=== PATIENT | male | born 1955 | race Caucasian/White ===

== ENCOUNTER 2018-12-25 11:38 | Inpatient (IN) | payer MEDICARE ==
[2018-12-25] VITALS (10 sets, daily range): BP systolic 104–144; BP diastolic 55–71
[~2018-12-25] VITALS: Ht 180.3 cm; Wt 131.3 kg
[~2018-12-25 11:38] MED LIST: COUMADIN5 MG PO; GLUCOTROL XL10 MG PO; LASIX 20 MG20 MG/TAB PO; PERCOCET 10/31 COMBO PO
--- NOTE | 2018-12-25 11:50 | NUR ---
PT BROUGHT DIRECTLY BACK PER W/C
--- NOTE | 2018-12-25 12:03 | NUR ---
PT STATES HE IS [facility] AND [facility] GOES TO [facility] BUT JUST DIDNT FEEL LIKE DRIVING. SATS 92%, RESP 20
[2018-12-25 12:32] LABS: HEMATOCRIT 40.6 % (39.0-50.0); HEMOGLOBIN 13.7 g/dl (14.0-18.0); IMMATURE GRANULOCYTES 0.6 % (0.0-5.0); MEAN CELL VOLUME 100.7 fL CALC (80.0-100.0); MEAN CORPUSCULAR HGB CONC 33.7 g/L CALC (32.0-36.0); NEUT# 7.55 thou/uL (1.82-7.42); RED BLOOD COUNT 4.03 mill/uL (4.70-6.10); RED CELL DISTRI WIDTH 14.3 % (11.5-15.5)
[2018-12-25 12:44] LABS: ANION GAP 20 (6-22 (CALC)); BUN 17 mg/dL (8-23); BUN/CREATININE RATIO 16 (12-20 (CALC)); CARBON DIOXIDE 27 mmol/l (22-30); CHLORIDE 95 mmol/l (95-108); CREATININE 1.1 mg/dL (0.7-1.3); GFR > 60 ML/MIN (>=60 (CALC)); GFR FOR AFR.AMER. > 60 ML/MIN (>=60 (CALC)); POTASSIUM 3.7 mmol/l (3.5-5.1); SODIUM 139 mmol/l (137-146)
--- NOTE | 2018-12-25 13:05 | NUR ---
PT REMAINS ALERT/ORIENTED X3, STILL DENIES CHEST PAIN, STATES HAS SOME PAIN TO RIGHT LOWER LEG BEHIND KNEE, DR. MORALEZ INFORMED, NO NEW ORDERS.
--- NOTE | 2018-12-25 13:38 | NUR ---
2ND EKG OBTAINED PER DR. PHELPS
[2018-12-25] MEDS ORDERED: TOPROL XL PO (13:53)
[2018-12-25] MEDS ORDERED: DIGOXIN0.125 MG PO (13:54)
[2018-12-25] MEDS ORDERED: LISINOPRIL5 MG PO (13:55)
[2018-12-25] MEDS ORDERED: POTASSIUM CHLO10 MEQ PO (13:55)
[2018-12-25] MEDS ORDERED: LIPITOR40 M1 PO (13:56)
[2018-12-25] MEDS ORDERED: XARELTO10 MG PO (13:56)
[2018-12-25] MEDS ORDERED: TIKOSYN500 MCG PO (13:58)
--- NOTE | 2018-12-25 14:03 | NUR ---
PT RESTING QUIETLY ON STRETCHER, CALL LIGHT WITHIN REACH, PT WATCHING TV. STATES NO CHEST PAIN BUT REMAINS HAVING OFF AND ON AGAIN SOB.
--- NOTE | 2018-12-25 14:13 | NUR ---
PT HAVING RUNS OF [facility], NOTIFIED, AND WILL SPEAK TO PT ABOUT POSSIBLE TRANSFER
--- NOTE | 2018-12-25 14:44 | NUR ---
PT HAD ANOTHER RUN OF VTACH, HEART RATE THEN DROPPED INTO THE 40'S. DR. AGUIRRE CALLED, PT WILL BE PLACED IN ICU INSTEAD OF MED SURG
--- NOTE | 2018-12-25 15:02 | NUR ---
UNABLE TO CALL REPORT AT THIS TIME, ICU WILL RETURN MY CALL SOON THEY ARE ABLE
--- NOTE | 2018-12-25 15:24 | NUR ---
PT ADMITTED TO ICU BED 3 FROM ER VIA STRETCHER, PT MARILUZSNFERS SELF TO BED WITH STEADY GAIT, NO SOB OR COMPLAINTS DURING TRANSFER, PT STATES HE FELT MIDLY SOB THIS AM AT HOME, HIS HEART BEAT JUST DIDN'T FEEL RIGHT, HE FELT CLOUDY IN HIS HEAD AND SOME "ALMOST DIZZY", PT ALERT AND ORIENTED, KNOWS MEDICATIONS WELL, NORMALLY A [facility], STATES ALSO PER HIS HOME SCALE THAT IS LINKED TO [facility] HE HAS GAINED 15 LBS IN LAST FEW DAYS, ADMISSION ASSESSMENT COMPLETED SEE INTERVENTIONS, SKIN WARM AND DRY WITH SMALL RED FLAT AREAS NOTED TO WAIST LINE, PT STATES THEY ARE OLD AND HE HAS HAD THEM FOREVER AND NO SYMPTOMS, NO ITCHING OR ANY COMPLAINTS, LUNGS ARE CLEAR DIMINSHED IN BASES PT ADMITTED SMOKER STATES MAY 1-3 CIGERETTES PER DAY, DENIES HOME O2 USAGE, SAT ON ROOM AIR 93-96% WITH NO SOB OR DISTRESS NOTED ABD OARGE AND SOFT LAST BM TODAY PER PT, 2+ EDEMA NOTED TO BILAT ANKLES PT STATES NOT NEW AND SOMETIMES IT IS WORSE THAN CURRENTLY, SAFETY MEASURES INTRODUCED, ORIENTED TO ROOM AND UNIT, ALL MONITORING EQUIPMENT EXPLAINED PRIOR TO APPLICATION, COMFORT MEASURES PROVIDED, TELE READING SB/SR WITH PVCS RATE 50-60'S, BP STABLE, CALL TRUONG WITHIN REACH, URINAL PROVIDED EDUCATED REGARDING NEED FOR ACCURATE I&O'S VERBALIZES UNDERSTANDING, 20G IV ACCESS IN LEFT AC WITH GOOD ASPIRATE SALINE LOCKED AT THIS TIME, WILL CONTINUE TO MONITOR.
--- NOTE | 2018-12-25 15:38 | NUR ---
PT TAKEN TO FLOOR PER STRETCHER AND MONITER.
--- NOTE | 2018-12-25 16:00 | NUR ---
APPROVAL FOR HOME MED USE FILLED OUT FOR HOSPITAL USE. LABEL ON BOTTLE WORN OFF BUT PT POSITIVELY IDENTIFIED MEDICATION.
--- NOTE | 2018-12-25 16:10 | NUR ---
DR AGUIRRE REQUEST US TO ASK CASE MANAGEMENT TO TRANSFER PT TO [facility] FOR CONTINUITY OF CARE.
--- NOTE | 2018-12-25 16:19 | NUR ---
PER CASE MANAGEMENT, [facility] HAS NO TELE BEDS. WE CAN TRY TRANSFER AGAIN TOMORROW.
--- NOTE | 2018-12-25 16:43 | NUR ---
PT UPDATED ON POSSIBLE TRANSFER TO [facility]. GIVEN URINALS. REVIEWED WHEN TO CALL NURSES AGAIN.
--- NOTE | 2018-12-25 17:44 | NUR ---
PT SITTING UP IN BED, EATING DINNER. PLACED ON 2L NC D/T O2 STATES DROPPING TO 88-90 WHILE AT REST. PT ABLE TO TALK & MOVE W/OUT SOB. PT COOPERATIVE WITH STAFF.
--- NOTE | 2018-12-25 18:12 | NUR ---
WAITING FOR CARDINAL TO VERIFY PAIN MED. PER DR AGUIRRE, HE ALREADY PLACED ORDER
--- NOTE | 2018-12-25 19:30 | NUR ---
BEDSIDE REPORT RECEIVED FROM ANTOINE STEINBERG. PT RESTING IN BED SEMI FOWLERS; ALERT AND ORIENTED. DENIES CHEST PAIN. C/O MILD HEADAHCE AND MILD LOWER BACK PAIN; STATES THAT LORTAB WAS EFFECTIVE AND REQUESTS ANOTHER AT HS. PLAN OF CARE REVIEWED. PT ENCOURAGED TO VERBALIZE CONCERNS. STATES UNDERSTANDING. SAFETY MEASURES IN PLACE. CALL LIGHT WITHIN REACH.
--- NOTE | 2018-12-25 20:00 | NUR ---
ASSESSMENT COMPLETE. PT IS SINUS RHYTHM ON HOME VISITS NURSE. LUNGS CLEAR. TRACE EDEMA TO RLE AND 1+ EDEMA TO LLE.
--- NOTE | 2018-12-25 21:30 | NUR ---
HS MEDIACTIONS ADMINISTERED. PT HAS NO REQUESTS OR CONCERNS AT THIS TIME. SITTING UP IN BED WATCHING TV.
--- NOTE | 2018-12-25 23:52 | NUR ---
LORTAB GIVEN WITH GOOD EFFECT FOR BACK PAIN. VOIDING BALBIR CLEAR URINE IN BEDSIDE URINAL. IV SITE APPEARS HEALTHY AND FLUSHES. SAFETY MEASURES IN PLACE. CALL LIGHT WITHIN REACH.
[2018-12-26] VITALS (29 sets, daily range): BP systolic 86–146; BP diastolic 43–76
--- NOTE | 2018-12-26 01:52 | NUR ---
PT ASLEEP WITH NO SIGNS OF DISTRESS; RESPIRATIONS EVEN AND UNLABORED ON OXYGEN. SINUS JUDITH DOWN TO 48 ON TELEMETRY; ASYMPTOMATIC. REPOSITIONING SELF IN BED. ONE PERSON ASSIST TO BSC.
--- NOTE | 2018-12-26 03:28 | NUR ---
PT HAVING FREQUENT PVC'S AND BIGEMINY. ASLEEP AND ASYMPTOMATIC. TELE RHYTHMS PRINTED AND PLACED IN CHART.
[2018-12-26 05:23] LABS: HEMATOCRIT 37.1 % (39.0-50.0); HEMOGLOBIN 12.6 g/dl (14.0-18.0); IMMATURE GRANULOCYTES 0.3 % (0.0-5.0); MEAN CELL VOLUME 100.8 fL CALC (80.0-100.0); MEAN CORPUSCULAR HGB 34.2 pG CALC (26.0-32.0); NEUT# 4.24 thou/uL (1.82-7.42); RED BLOOD COUNT 3.68 mill/uL (4.70-6.10); RED CELL DISTRI WIDTH 14.6 % (11.5-15.5)
--- NOTE | 2018-12-26 05:30 | NUR ---
PT SITTING UP BED; ALERT AND ORIENTED WITH DRY COUGH. NO REQUESTS OR CONCERNS. REVENUE MANAGER SHOWING OCCASIONAL PVC'S SINUS RHYTHM.
--- NOTE | 2018-12-26 06:27 | NUR ---
LORTAB GIVEN FOR CHRONIC LOWER BACK PAIN 03/27. DISCUSSED MEDICATION SCHEDULE WITH PT. ONLY REQUEST AT THIS TIME IS FOR COFFEE.
[2018-12-26 06:32] LABS: ALBUMIN 3.5 g/dL (3.2-5.0); ALKALINE PHOSPHATASE 68 u/l (38-126); AMYLASE < 30 u/l (30-110); ANION GAP 13 (6-22 (CALC)); BUN 16 mg/dL (8-23); BUN/CREATININE RATIO 17 (12-20 (CALC)); CARBON DIOXIDE 29 mmol/l (22-30); CHLORIDE 97 mmol/l (95-108); CREATININE 0.9 mg/dL (0.7-1.3); GFR > 60 ML/MIN (>=60 (CALC)); GFR FOR AFR.AMER. > 60 ML/MIN (>=60 (CALC)); LIPASE 47 u/l (23-300); MAGNESIUM 1.7 mg/dL (1.6-2.3); POTASSIUM 3.2 mmol/l (3.5-5.1); SGOT/AST 30 u/l (19-48); SODIUM 136 mmol/l (137-146)
--- NOTE | 2018-12-26 07:35 | NUR ---
ASSESSMENT IS COMPLETED; IV SITE IS FREE FROM REDNESS OR EDEMA. BREATH SOUNDS ARE CLEAR BILATERALLY. NO C/O SOB, HR IS REG,PULSES ARE STRONG X4, ABD IS SOFT WITH ACTIVE BS. O2 @ 2LITERS WITH NC. WHEN PT FEELS HE NEDS IT. DID C/O SOME SOB. INQUIRED ABOUT THE RESCUE INHALER.
--- NOTE | 2018-12-26 10:37 | NUR ---
PT WAS GETTING CLEANED UP AND AT THE END HAD SOME RUNS OF VTACH PT DID BECOME WINDED
--- NOTE | 2018-12-26 10:45 | NUR ---
IN TO VISIT WITH PT. PT HAD SOME MORE VTACH INFORMED DR. HE CALLED DR. HUITRON WILL START ON AMIODARONE DRIP ALSO POTASSIUM FOR LOW POTASSIUM. PT VERBALIZED UNDERSTANDING.,
--- NOTE | 2018-12-26 11:15 | NUR ---
PT PLACED ON AMIODARONE DRIP AT THIS TIME. TOLERATING WELL.
--- NOTE | 2018-12-26 12:00 | NUR ---
PT IS RELAXING IN BED , CONTINUE TO MONITOR THE RYTHM, OCCASIONAL IRREGULAR BEAT. CONTINUE TO OSBERVE AND MONITOR.
--- NOTE | 2018-12-26 14:00 | NUR ---
PT IS RELAXING IN BED WITH NO DISTREASS NOTED. IV SITE IS FREE FROM REDNESS OR EDEMA.
--- NOTE | 2018-12-26 16:00 | NUR ---
PT IS RELAXING IN BED WITH NO DISTRESS NOTED. IV SITE IS FREE FROM REDNESS OR EDEMA.
--- NOTE | 2018-12-26 17:00 | NUR ---
INTO VISIT WITH PT. NEW ORDERS WRITTEN. CONTINUE TO OBSERVE AND MONITOR.
--- NOTE | 2018-12-26 18:00 | NUR ---
PT IS RELAXING IN BED WITH NO DISTRESS NOTED. IV SITE IS FREE FROM REDNESS OR EDEMA.
--- NOTE | 2018-12-26 19:00 | NUR ---
BEDSIDE REPORT RECEIVED FROM MIKE PINO. PT SITTING UP IN BED WATCHING TV; ALERT AND ORIENTED. C/O MILD LOWER BACK PAIN AND FEELING "WOOZY AND WOBBLY" WHEN HE STANDS. SINUS JUDITH IN THE 40'S AT THIS TIME. RESPIORATIONS EVEN AND UNLABORED ON OXYGEN 2L VIA NC. PLAN OF CARE REVIEWED. PT ENCOURAGED TO VERBALIZE CONCERNS. STATES UNDERSTANDING. SAFETY MEASURES IN PLACE. CALL LIGHT WITHIN REACH.
--- NOTE | 2018-12-26 19:30 | NUR ---
ASSESSEMENT COMPLETE. LUNGS ARE CLEAR WITH 1+ EDEMA. IV FLUIDS INFUSING AT KVO; IV SITE APPEARS HEALTHY. PT VOIDING CLEAR YELLOW URINE FREQUENTLY IN URINAL.
--- NOTE | 2018-12-26 21:00 | NUR ---
CHERRY SORTER AT BEDSIDE FOR ECHOCARDIOGRAM.
--- NOTE | 2018-12-26 21:15 | NUR ---
HS MEDICATIONS GIVEN; 2 UNITS ADMINSITERED FOR BLOOD SUGAR OF 174 AND SNACK PROVIDED.
[2018-12-27] VITALS (16 sets, daily range): BP systolic 104–144; BP diastolic 45–94
--- NOTE | 2018-12-27 | NUR ---
LORTAB GIVEN FOR LOWER BACK PAIN 03/27 WITH GOOD EFFECT. REMAINS SINUS JUDITH IN THE 40'S ON PRECISION MACHINING INSTRUCTOR WITH OCCASIONAL PVC'S. NO REQUESTS OR CONCERNS AT THIS TIME. REPOSITIONING SELF IN BED AND WATCHING TV.
--- NOTE | 2018-12-27 02:06 | NUR ---
AFEBRILE. IV SITES APPEAR HEALTHY AND BOTH FLUSH TO LAC AND LFA. PT SLEEPING ON AND OFF; AWAKENS SPONTANEOUSLY.
--- NOTE | 2018-12-27 04:11 | NUR ---
PT ASLEEP AT THIS TIME WITH NO SIGNS OF DISTRESS.
--- NOTE | 2018-12-27 05:30 | NUR ---
LAB AT BEDSIDE.
[2018-12-27 05:54] LABS: HEMATOCRIT 36.3 % (39.0-50.0); HEMOGLOBIN 12.3 g/dl (14.0-18.0); IMMATURE GRANULOCYTES 0.4 % (0.0-5.0); MEAN CELL VOLUME 101.4 fL CALC (80.0-100.0); MEAN CORPUSCULAR HGB 34.4 pG CALC (26.0-32.0); MEAN CORPUSCULAR HGB CONC 33.9 g/L CALC (32.0-36.0); NEUT# 5.69 thou/uL (1.82-7.42); RED BLOOD COUNT 3.58 mill/uL (4.70-6.10); RED CELL DISTRI WIDTH 14.4 % (11.5-15.5)
[2018-12-27 06:14] LABS: ALBUMIN 3.3 g/dL (3.2-5.0); ALKALINE PHOSPHATASE 66 u/l (38-126); ANION GAP 11 (6-22 (CALC)); BILIRUBIN, TOTAL 0.8 mg/dL (0.0-1.4); BUN 11 mg/dL (8-23); BUN/CREATININE RATIO 14 (12-20 (CALC)); CARBON DIOXIDE 26 mmol/l (22-30); CHLORIDE 103 mmol/l (95-108); CREATININE 0.8 mg/dL (0.7-1.3); GFR > 60 ML/MIN (>=60 (CALC)); GFR FOR AFR.AMER. > 60 ML/MIN (>=60 (CALC)); MAGNESIUM 1.9 mg/dL (1.6-2.3); SGOT/AST 23 u/l (19-48); SODIUM 136 mmol/l (137-146); TOTAL PROTEIN 5.8 g/dL (6.3-8.2)
[2018-12-27 06:19] LABS: POTASSIUM 3.9 mmol/l (3.5-5.1)
--- NOTE | 2018-12-27 06:19 | NUR ---
LORTAB GIVEN NOW FOR BACK PAIN. SITTING UP WATCHING TV; ALERT AND ORIENTED; PLEASANT.
--- NOTE | 2018-12-27 07:40 | NUR ---
pt awake in bed; no apparent distress noted; assessment completed at this time; pt alert and oriented; denies pain; pt with complaints of feeling "woozy"; admits to nausea feeling and sob worse with activity; resp even and unlabored; lungs clear; skin color wnl; o2 per nc; hr reg; strong pulses; edema noted to ble; abd soft/ distended with bs present; no bm noted per board writer; pt admits to voiding without difficulty; no urine to inspect at this time; #20 intact to lac/ #22 to lfa; iv's flushed and patent; no redness or edema noted at sites; plan of care/ am meds explained; call light within reach; will continue to monitor
--- NOTE | 2018-12-27 08:18 | NUR ---
awake in bed; offers no complaints; sb on monitor; call light within reach; will continue to monitor
--- NOTE | 2018-12-27 10:10 | NUR ---
awake in bed; pt offers no complaints; no apparent distress noted; iv's intact' sr on monitor; call light within reach; will continue to monitor
--- NOTE | 2018-12-27 11:08 | NUR ---
Dr Garcia present at bedside to assess pt and discuss plan of care
--- NOTE | 2018-12-27 12:03 | NUR ---
awake; up to chair; offers no complaints; no apparent distress noted; sb on monitor; call light within reach; will continue to monitor
--- NOTE | 2018-12-27 14:08 | NUR ---
awake in bed; offers no complaints; deny needs; iv's intact; sb on monitor; po fluids provided; call light within reach; will continue to monitor
--- NOTE | 2018-12-27 16:10 | NUR ---
pt awake in bed; offers complaints of lower back pain; medicated per orders; iv's intact; no redness or edema noted at site; sb on monitor; plan of care/pm meds explained; call light within reach; will continue to monitor
--- NOTE | 2018-12-27 18:04 | NUR ---
awake in bed; offers no complaints; iv intact; no redness or edema noted at sites; sb on monitor; o2 per nc; call light within reach
--- NOTE | 2018-12-27 19:15 | NUR ---
BEDSIDE REPORT RECEIVED FROM ANTOINE [place]. PT SITTING UP IN BED WATCHING TV; ALERT AND ORIENTED. C/O USUAL CHRONIC BACK PAIN. RESPIRATIONS EVEN AND UNLABORED ON OXYGEN 2L VIA NC. PLAN OF CARE DISCUSSED. PT ENCOURAGED TO VERBALIZE CONCERNS. STATES UNDERSTANDING. SAFETY MEASURES IN PLACE. CALL LIGHT WITHIN REACH.
--- NOTE | 2018-12-27 20:50 | NUR ---
HS MEDICATIONS ADMINISTERED. 2 UNITS OF NOVOLOG GIVEN FOR BLOOD SUGAR OF 151; SNACK PROVIDED. PT VERY TALKATIVE AND PLEASANT. VOIDING FREQUENTLY IN URINAL.
--- NOTE | 2018-12-27 23:27 | NUR ---
LORTAB GIVEN FOR CHRONIC LOWER BACK PAIN. PT REMAINS SINUS JUDITH WITH PVC'S ON TELEMETRY.
[2018-12-28] VITALS (12 sets, daily range): BP systolic 112–144; BP diastolic 63–76
--- NOTE | 2018-12-28 01:26 | NUR ---
PT HEART RATE DOWN INTO THE 30'S TEMPORARILY WHILE ASLEEP.
--- NOTE | 2018-12-28 04:14 | NUR ---
NO ACUTE CHANGES IN CONDITION THROUGHOUT THE NIGHT.
[2018-12-28 05:29] LABS: HEMATOCRIT 37.4 % (39.0-50.0); HEMOGLOBIN 12.4 g/dl (14.0-18.0); IMMATURE GRANULOCYTES 0.3 % (0.0-5.0); MEAN CELL VOLUME 101.4 fL CALC (80.0-100.0); MEAN CORPUSCULAR HGB 33.6 pG CALC (26.0-32.0); MEAN CORPUSCULAR HGB CONC 33.2 g/L CALC (32.0-36.0); NEUT# 4.12 thou/uL (1.82-7.42); RED BLOOD COUNT 3.69 mill/uL (4.70-6.10); RED CELL DISTRI WIDTH 14.6 % (11.5-15.5)
[2018-12-28 05:57] LABS: ALBUMIN 3.3 g/dL (3.2-5.0); ALKALINE PHOSPHATASE 68 u/l (38-126); ANION GAP 13 (6-22 (CALC)); BILIRUBIN, TOTAL 0.8 mg/dL (0.0-1.4); BUN 9 mg/dL (8-23); BUN/CREATININE RATIO 12 (12-20 (CALC)); CARBON DIOXIDE 25 mmol/l (22-30); CHLORIDE 105 mmol/l (95-108); CREATININE 0.8 mg/dL (0.7-1.3); GFR > 60 ML/MIN (>=60 (CALC)); GFR FOR AFR.AMER. > 60 ML/MIN (>=60 (CALC)); MAGNESIUM 1.8 mg/dL (1.6-2.3); POTASSIUM 4.1 mmol/l (3.5-5.1); SGOT/AST 17 u/l (19-48); SODIUM 139 mmol/l (137-146); TOTAL PROTEIN 5.9 g/dL (6.3-8.2)
--- NOTE | 2018-12-28 06:37 | NUR ---
LORTAB GIVEN FOR 7/10 LOWER BACK PAIN AND COFFEE PROVIDED PER PT REQUEST. NO OTHER REQUESTS AT THIS TIME.
--- NOTE | 2018-12-28 07:00 | NUR ---
pt awake in bed; no apparent distress noted; pt offers no complaints; assessment completed at this time; pt alert and oriented; admits to pain relief; no n/v noted; pt with complaints of feeling "woozy" with activity; resp even and unlabored; lungs clear; skin color wnl; o2 per nc; hr reg; strong pulses; no edema noted; sb on monitor; abd soft/ distended with bs present; no bm noted per insurance writer; voiding clear yellow urine without difficulty; urinal at bedside; #22 to lfa/ #20 to lac flushed and patent; no redness or edema noted at sites; plan of care/ am meds explained; call light within reach; will continue to monitor
--- NOTE | 2018-12-28 08:03 | NUR ---
awake in bed; assist to bathroom; no apparent distress noted; sb on monitor with occ pvc; call light within reach; will continue to monitor
--- NOTE | 2018-12-28 09:49 | NUR ---
noted bradycardic on monitor; in to assess pt immediately; film writer witnessed pt awakening with shortness of breath upon film writer entering room; pt noted junctional 33-35 on monitor; bp stable; Dr Garcia on unit and notified; will continue to monitor
--- NOTE | 2018-12-28 09:55 | NUR ---
awake in bed; no apparent distress noted; pt offers no complaints; iv's intact; no redness or edema noted at sites; sr on monitor with pvc; o2 per nc; Dr Garcia present at bedside to assess pt and discuss plan of care; call light within reach; will continue to monitor
--- NOTE | 2018-12-28 11:55 | NUR ---
st 100-110s on monitor; pt sitting on side of bed eating lunch; will continue to monitor
--- NOTE | 2018-12-28 12:01 | NUR ---
awake sitting on side of bed eating lunch; no apparent distress noted; o2 per nc; iv intact; st 120s on monitor; call light wihtin reach; will continue to monitor
--- NOTE | 2018-12-28 12:05 | NUR ---
pt now aflutter on monitor; MICK Houston present at bedside
--- NOTE | 2018-12-28 12:29 | NUR ---
NO Zolkos present at bedside to assess pt and discuss plan of care
--- NOTE | 2018-12-28 13:50 | NUR ---
rewriter spoke with Dr Garcia in regards to changes in rhythm and rate/ plan of care; rewriter also spoke with Waqsa Fitzpatrick CM in regards to transfer recommendation per Dr Way and need for approval from [facility]; will continue to monitor
--- NOTE | 2018-12-28 14:10 | NUR ---
awake in bed; pt continues to watch cardiac monitoring screen frequently notifying this song writer of hr; song writer explained to pt all changes and hr are observed per staff; vss; pt reassured; aflutter on monitor; o2 per nc; iv intact; call light within reach; will continue to monitor
--- NOTE | 2018-12-28 16:10 | NUR ---
awake in bed; no apparent distress noted; aflutter on monitor; rate controlled; iv intact; o2 per nc; call light within reach; will continue to monitor
--- NOTE | 2018-12-28 18:02 | NUR ---
awake in bed; offers no complaints; iv's intact; no redness or edema noted at site; o2 per nc; pt offers no complaints; call light within reach
--- NOTE | 2018-12-28 19:23 | NUR ---
BEDSIDE REPORT RECEIVED FROM ANTOINE [place]. PT SITTING UP IN BED; ALERT AND ORIENTED WATCHING TV. CHRONIC BACK PAIN CONTINUES. RESPIRATIONS EVEN AND UNLABORED ON OXYGEN 2L VIA NC. PT VERY INVOLVED AND WATCHING HIS MONITOR. SAFETY MEASURES IN PLACE. CALL LIGHT WITHIN REACH.
--- NOTE | 2018-12-28 21:00 | NUR ---
HS MEDS ADMINISTERED; METOPROLOL HELD FOR HEART RATE BELOW PARAMETERS.
--- NOTE | 2018-12-28 21:34 | NUR ---
PT INQUIRING ON IF HE WILL BE RECEIVING HIS TIKOSYN OR A DIURETIC TONIGHT. CLARIFIED WITH DR. AGUIRRE; MEDICATIONS WILL NOT BE GIVEN TONIGHT. PT UPDATED. HS MEDICATIONS GIVEN.
--- NOTE | 2018-12-28 22:00 | NUR ---
LORTAB GIVEN FOR 7/10 LOWER BACK PAIN.
[2018-12-29] VITALS (7 sets, daily range): BP systolic 104–139; BP diastolic 65–90
--- NOTE | 2018-12-29 00:11 | NUR ---
PT ASLEEP AT THIS TIME WITH NO SIGNS OF DISTRESS. RESPIRATIONS EVEN AND UNLABORED ON OXYGEN. USES CALL LIGHT PRN FOR ASSISTANCE.
--- NOTE | 2018-12-29 02:22 | NUR ---
PT ASLEEP WITH NO SIGNS OF DISTRESS. CURRENTLY IN AFLUTTER WITH RATE OF 88.
--- NOTE | 2018-12-29 04:04 | NUR ---
CONTINUES IN AFLUTTER RHYTHM; HEART RATE INCREASED INTO THE 110'S TEMPORARILY WITH EXERTION OF USING URINAL TO VOID; HEART RATE CURRENTLY 60'S - 70'S AT REST. WILL CONTINUE TO MONITOR.
--- NOTE | 2018-12-29 06:10 | NUR ---
LORTAB GIVEN FOR LOWER BACK PAIN. PT DISCUSSING MEAL TRAYS AND DIABETIC DIET.
--- NOTE | 2018-12-29 07:05 | NUR ---
pt awake in bed; no apparent distress noted; pt offers no complaints; assessment completed at this time; pt alert and oriented; complaints of lower back pain rating 5/10; prev medicated; no n/v noted; resp even and unlabored; pt admits to exertional sob; lungs clear; skin color wnl; o2 per nc at 2L; [facility] cough noted; hr irreg; strong pulses; no edema noted; aflutter on monitor; abd soft with bs present; pt report daily bm's; not observed per personal lines underwriter; pt voiding clear yellow urine; urinal at bedside; #20 to lac #20 to lfa intact; no redness or edema noted at sites; rash noted to upper buttocks; plan of care/ am meds explained; call light within reach; will continue to monitor
--- NOTE | 2018-12-29 08:15 | NUR ---
awake in bed; offers no complaints; no apparent distress noted; iv's intact; aflutter on monitor; call light within reach; will continue to monitor
--- NOTE | 2018-12-29 09:21 | NUR ---
am meds explained and administered; pt questioning Tikosyn and diuretics; pt has been informed on multiple occasions that these medications are not ordered/ hold on hold per MD; informed pt, this database report writer has spoken with MD yesterday in regards to Tikasyn/medication remaining on hold; pt states this database report writer informed him he will receive Tikasyn last night; database report writer clarified miscommunication, pt was explained he will receive lopressor at 9pm if hr remain elevated; meds administered; will continue to monitor
--- NOTE | 2018-12-29 10:18 | NUR ---
pt in bed; lopressor administered for sustained hr above 65; o2 per nc; po fluids provided; iv intact; call light within reach; will continue to monitor
--- NOTE | 2018-12-29 11:30 | NUR ---
Dr Garcia present at bedside to assess pt and discuss plan of care; explained need for transfer in regards to cardiac workup; will continue to monitor
--- NOTE | 2018-12-29 11:36 | NUR ---
call placed to Waqas Fitzpatrick CM for follow up on [facility] bed placement or authorization; CM to call this engineering writer back
--- NOTE | 2018-12-29 12:01 | NUR ---
awake sitting on side of bed eating lunch; no apparent distress noted; resp even and unlabored; o2 per nc; iv intact; aflutter on monitor; call light within reach; will continue to monitor
--- NOTE | 2018-12-29 12:56 | NUR ---
call received from Dr Garcia; orders received to initiate transfer to [facility] for ICU bed under the acceptance of Dr Price;
--- NOTE | 2018-12-29 13:08 | NUR ---
[facility] called per entry writer; spoke with Anika; information provided on transfer; entry writer informed Anika pt needs cardiology for EP study, possible ablation, possible pacemaker placement; Anika informed this entry writer their facility does not perform EP studies or ablations; to be notified
--- NOTE | 2018-12-29 13:10 | NUR ---
Dr Garcia informed of information obtained from [facility]; orders received to initiate transfer to [facility]
--- NOTE | 2018-12-29 13:22 | NUR ---
CALL INTO [facility] SPOKE FAROOQ MANZANARES TO FACILITATE TRASNFER TO [facility] FOR EP STUDY POSSIBLE ABLATION AND POSSIBLE PACEMAKER. FACE SHEET FAXED REQUESTED
--- NOTE | 2018-12-29 14:00 | NUR ---
call received from [facility] transfer center; pt accepted by Dr Way; bed 771 B assigned; will continue to monitor
--- NOTE | 2018-12-29 14:03 | NUR ---
awake in bed; no apparent distress noted; pt offers no complaints; po fluids provided; aflutter on monitor; iv intact; urinal at bedside; pt explained on pending transfer to [facility] under Dr Way; will continue to monitor
--- NOTE | 2018-12-29 14:25 | NUR ---
software writer at bedside to explained transfer and obtained consent; pt voices to the software writer about checking out; AMA process explained; software writer explained condition can detoriate very quickly even ; pt did sign consent to transfer but wishes to wait for a while; software writer will check with CM prior to initiating transport
--- NOTE | 2018-12-29 14:31 | NUR ---
call placed to Waqas Fitzpatrick to check on placement at [facility] prior to this marine underwriter initiating transport; awaiting return call
--- NOTE | 2018-12-29 14:40 | NUR ---
[id number] justowriter operator and REYNA Fitzpatrick at bedside; CM explained in great detail information obtained from [facility] staff; pt wishes to speak with [facility] prior to transfer; Dr Garcia aware of situation; will continue to monitor
--- NOTE | 2018-12-29 15:03 | NUR ---
pt continues to spwak with [facility] staff; awaiting final decision on transfer
--- NOTE | 2018-12-29 15:18 | NUR ---
[facility] called; information provided on transfer; ETA 20-30 minutes
--- NOTE | 2018-12-29 15:35 | NUR ---
pt updated in ETA; pt requesting to get dressed; writer editor informed pt on need to transfer in hospital gown; pt refusing; fully dressed; pt removed all monitoring attachments; pt requesting iv's to be removed; writer editor explained iv access is required; pt sitting in chair awaiting transport; will continue to monitor
--- NOTE | 2018-12-29 15:50 | NUR ---
report called to Yumiko at [facility] [phone]; direct number provided for any additional questions
--- NOTE | 2018-12-29 16:10 | NUR ---
[facility] transport team on unit; report given
--- NOTE | 2018-12-29 16:16 | NUR ---
pt departed with [facility] in stable condition
== END 2018-12-29 16:16 | disposition short-term general hospital (02) | DRG 308 ==
LOC: ED 11:38 → ED-I 13:44 → ED 13:44 → MS2 13:52 → ICU 14:34
PROVIDERS: Family Medicine; ADMIT Internal Medicine Nephrology; ATTEND Internal Medicine Nephrology
DX: I47.2 Ventricular tachycardia (principal); I50.23 Acute on chronic systolic (congestive) heart failure; Z68.41 Body mass index [BMI] 40.0-44.9, adult; J44.9 Chronic obstructive pulmonary disease, unspecified; I11.0 Hypertensive heart disease with heart failure; E66.9 Obesity, unspecified; G47.33 Obstructive sleep apnea (adult) (pediatric); E78.5 Hyperlipidemia, unspecified; M54.9 Dorsalgia, unspecified; G89.29 Other chronic pain; E11.9 Type 2 diabetes mellitus without complications; F17.210 Nicotine dependence, cigarettes, uncomplicated; E87.6 Hypokalemia; I48.1 Persistent atrial fibrillation; T46.2X5A Adverse effect of other antidysrhythmic drugs, initial encounter; I48.0 Paroxysmal atrial fibrillation; R09.02 Hypoxemia; Z79.01 Long term (current) use of anticoagulants; Z86.711 Personal history of pulmonary embolism; I48.92 Unspecified atrial flutter
CPT/HCPCS: J0282; Q9967